=== PATIENT | male | born 1965 | race Caucasian/White ===

== ENCOUNTER 2020-10-18 23:02 | Inpatient (IN) | payer MEDICAID ==
[~2020-10-18] VITALS: Ht 172.7 cm; Wt 72.6 kg
[2020-10-18] MEDS ORDERED: LORAZEPAM 2 MG/1 ML VIAL IM ONE (23:15)
[2020-10-18] MEDS ORDERED: IV NORMAL SALINE 1000 ML BAG IV ONE ×2 (23:15)
[2020-10-18] MEDS ORDERED: ONDANSETRON 4 MG/2 ML VIAL IV ONE (23:15)
[2020-10-18] MEDS ORDERED: HALOPERIDOL LACTATE 5 MG/1 ML VIAL IM ONE (23:15)
--- NOTE | 2020-10-18 23:23 | NUR ---
Pt. bib RA 83 from home cc lower back pain and ams. Pt. only speaks farsi. Blood sugar on the field was 100. According to RA 83 pts. family did not provide any medical hx. On arrival pt. has been yelling for his mother repeatedly. Farsi speaking staff attempted to converse with pt. and report he was unable to answer questions. Pt is able to follow simple commands.
[2020-10-18] MEDS ORDERED: ONDANSETRON 4 MG/2 ML VIAL ONE (23:36)
[2020-10-18] MEDS ORDERED: HALOPERIDOL LACTATE 5 MG/1 ML VIAL ONE (23:36)
[2020-10-18] MEDS ORDERED: LORAZEPAM 2 MG/1 ML VIAL ONE ×2 (23:37→23:51)
--- NOTE | 2020-10-18 23:40 | NUR ---
Pt. yelling, thrashing and attempting to get out of bed. Multiple attempts made to reorient successfully. Security was called to monitor the pt. 1:1. Fall risk precautions in place. notified.
[2020-10-18] MEDS ORDERED: LORAZEPAM 2 MG/1 ML VIAL IV ONE (23:45)
[2020-10-18 23:48] LABS: ETHANOL < 3 MG/DL (0-0)
[2020-10-18 23:49] LABS: CARBON DIOXIDE 19 mmol/L (21-32); CHLORIDE 100 mmol/L (98-107); CREATININE 0.7 mg/dL (0.6-1.3); GLUCOSE 92 mg/dL (74-106); UREA NITROGEN, BLOOD 10 mg/dL (7-18)
[2020-10-18 23:50] LABS: POTASSIUM 2.7 mmol/L (3.5-5.1)
[2020-10-18 23:51] LABS: HEMATOCRIT 41.2 % (36.7-47.1); MEAN CORPUSCULAR HEMOGLOBIN 28.3 uug (23.8-33.4); MEAN CORPUSCULAR VOLUME 87.6 fL (73.0-96.2); PLATELET COUNT (AUTO) 386 K/uL (152-348)
--- NOTE | 2020-10-18 23:55 | NUR ---
Pts. is at bedside. Pts states pt. was admitted to [facility] for a suspected overdose of the pts. home pain medication on 10/12. While hospitalized the pt. developed aspiration pneumonia. Pts. says he became confused during his stay at [facility] [place] she believes due to the infection. Pt. was discharged from [facility] 10/17. Pt. has had continous nausea, vomiting, diarrhea with appetite loss for past 10 days. Pts. is primary still runner for pt. Pt. is not ambulatory due to chronic back pain, pt also had a fall in nov causing lumbar and rib fractures.
[2020-10-19] LABS: MAGNESIUM 1.6 mg/dL (1.8-2.4); PHOSPHOROUS 1.8 mg/dL (2.5-4.9)
[2020-10-19] MEDS ORDERED: POTASSIUM CHLORIDE 20 MEQ TAB.PRT.SR PO ONE
[2020-10-19 00:01] LABS: ALANINE AMINOTRANSFERASE 35 U/L (16-63); ALKALINE PHOSPHATASE 64 U/L (50-136); ASPARTATE AMINOTRANSFERASE 21 U/L (15-37); BILIRUBIN,DIRECT 0.1 mg/dL (0.0-0.2); BILIRUBIN,TOTAL 0.4 mg/dL (0.2-1.0); TOTAL PROTEIN, SERUM 7.3 g/dL (6.4-8.2)
[2020-10-19 00:02] LABS: THYROID STIMULATING HORMONE 4.104 mIU/mL (0.358-3.740)
[2020-10-19] MEDS ORDERED: POTASSIUM CHLORIDE 20 MEQ TAB.PRT.SR ONE (00:03)
[2020-10-19] MEDS ORDERED: POTASSIUM PHOSPHATE MM 15 MMOL in IV NORMAL SALINE 250 ML IV ONE (00:15)
[2020-10-19] MEDS: MAGNESIUM SULFATE/D5W 100 ML IV SCH ×2 (00:15→06:00)
[2020-10-19 00:23] LABS: *BILIRUBIN,URIN NEGATIVE (NEGATIVE); *BLOOD, URINE NEGATIVE (NEGATIVE); *CLARITY,URINE CLEAR (CLEAR); *COLOR,URINE YELLOW (YELLOW); *KETONES,URINE 1+ (NEGATIVE); *UROBILINOGEN,URINE 0.2 E.U./dl (NORMAL); LEUKOCYTE ESTERASE ,URINE NEGATIVE (NEGATIVE); NITRITE, URINE NEGATIVE (NEGATIVE); PH,URINE 7.5 (5.0-8.0); UGLUCOSE NEGATIVE (NEGATIVE)
--- NOTE | 2020-10-19 00:34 | NUR ---
Pt. taken to ct.
[2020-10-19 00:35] LABS: *AMPHETAMINE, URINE NEGATIVE (NEGATIVE); *CANNABINOID, URINE NEGATIVE (NEGATIVE); *COCCAINE, URINE NEGATIVE (NEGATIVE); *OPIATE, URINE POSITIVE (NEGATIVE); *PHENCYCLIDINE SCREEN,URINE NEGATIVE (NEGATIVE)
[2020-10-19 00:44] LABS: BACTERIA,URINE FEW /HPF (NONE SEEN); RBC,URINE 0-3 /HPF (0-3); SQUAMOUS EPITHELIAL CELL,UR FEW /HPF (NONE SEEN); WBC,URINE 0-3 /HPF (0-3)
[2020-10-19 00:45] LABS: URINE AMORPHOUS PHOSPHATES MODERATE /HPF
[2020-10-19] MEDS ORDERED: HYDROMORPHONE 1 MG/1 ML DISP.SYRIN IV ONE (00:45)
[2020-10-19] MEDS ORDERED: HYDROMORPHONE 1 MG/1 ML DISP.SYRIN ONE (00:50)
[2020-10-19] MEDS ORDERED: KETAMINE HCL 500 MG/10 ML INJ IV ONE (01:00)
[2020-10-19] MEDS ORDERED: KETAMINE HCL 500 MG/10 ML INJ ONE (01:08)
--- NOTE | 2020-10-19 01:12 | NUR ---
MANAGER FOOD BEVERAGEclinical staff anesthesiologist member went down to ct scan to assist administered ketamine ivp with ERMD to have ct scan to be completed but patient's refused and patient was able to cooperate with flour inspector to completed ct scan.
[2020-10-19] MEDS ORDERED: TERI2.4P SQ (01:33)
[2020-10-19] MEDS ORDERED: HYDR-3980 PO (01:33)
[2020-10-19] MEDS ORDERED: GABA600T PO (01:33)
[2020-10-19] MEDS ORDERED: FLUO40CA8 PO (01:33)
[2020-10-19] MEDS ORDERED: TRAZ-257 PO (01:33)
[2020-10-19] MEDS ORDERED: [UNRECOGNIZED DRUG - CODE] PO (01:41)
--- NOTE | 2020-10-19 02:00 | NUR ---
Pt. resting comfortably in bed. Pts. at bedside. Pt A&Ox3. Vss. Side rails up, fall precautions in place. Will continue to monitor.
[2020-10-19] MEDS ORDERED: MAGNESIUM SULFATE/D5W 100 ML ONE ×2 (02:32→06:37)
[2020-10-19] MEDS ORDERED: VANCOMYCIN IV 1,250 MG in IV DEXTROSE 5% 250 ML IV ONE (02:45)
[2020-10-19] MEDS ORDERED: DOXYCYCLINE HYCLATE IV 100 MG in IV DEXTROSE 5% 100 ML IV ONE (02:45)
[2020-10-19] MEDS ORDERED: IV NORMAL SALINE 500 ML IV ONE (02:45)
[2020-10-19] MEDS ORDERED: CEFEPIME HCL 2 G in IV DEXTROSE 5% 100 ML IV ONE (02:45)
--- NOTE | 2020-10-19 03:10 | NUR ---
Called for bed
--- NOTE | 2020-10-19 03:10 | NUR ---
Jose C castillo in ED - 10/19/20 at 0724 by ANTONIO Maxepime 2G IV, Vancocin 1,250 mg IV, Vibramycin 100 mg IV, Levaquin 750 mg IV endorsed to ORTEGA Wilson.
--- NOTE | 2020-10-19 03:12 | NUR ---
Dr. Cervantes consulting with Isabel Lowry NP regarding pt. admission.
[2020-10-19] MEDS ORDERED: IV 1/2 NS + KCL 20 MEQ BAG 1,000 ML IV PRN (03:30)
[2020-10-19] MEDS ORDERED: ONDANSETRON 4 MG/2 ML VIAL IV PRN (03:30)
[2020-10-19] MEDS ORDERED: MAGNESIUM HYDROXIDE 30 ML LIQUID UDC PO PRN (03:30)
[2020-10-19] MEDS ORDERED: ACETAMINOPHEN 325 MG TABLET PO PRN (03:30)
[2020-10-19] MEDS ORDERED: Z GUARD REMEDY PASTE 57 GM TUBE TOP PRN (03:30)
--- NOTE | 2020-10-19 03:39 | NUR ---
ER pyxis does not carry the Potassium Phosphate that the MD ordered. Dr. Cervantes was informed, declined to change the order. Dr. Cervantes wants to leave the order standing as is for the floor to complete when pharmacy can obtain the medication tomorrow.
[2020-10-19] MEDS ORDERED: levoFLOXacin 750MG/D5W 750 MG in PREMIXED 1 EACH IV SCH ×2 (04:00→09:00)
--- NOTE | 2020-10-19 04:04 | NUR ---
Report given to ORTEGA Johnson. Addendum: 10/19/20 at 0409 by ANTONIO Report given to ORTEGA Wilson.
--- NOTE | 2020-10-19 04:04 | NUR ---
Maxepime 2G IV, Vancocin 1,250 mg IV, Vibramycin 100 mg IV, Levaquin 750 mg IV endorsed to ORTEGA Wilson.
[2020-10-19 05:30] VITALS: BP 93/69
--- NOTE | 2020-10-19 05:45 | NUR ---
Admitted patient to tele unit from Er via carlos enrique accompanied by Er nurse .Dx of acute encephalopathy.Patient awake alert x2. Confused , no episodes of yelling at this time.Farsi speaking with 02 at 1LPM via [place].No s/s of distress noted.Iv on right UA 20 g .Skin assessment done , noted with multiple skin issues. Photos taken and placed in the chart.IV medications wasn't infuse from ER since from 0100 in the morning.Notified Er nurse/Susana stated she 'll come to administer some of IV medications.Call light with in reach.Safety measures in place. 1:1 sitter at bedside . Will endorse to oncoming shift.
[2020-10-19] MEDS ORDERED: CEFEPIME HCL 1 G VIAL ONE (06:33)
[2020-10-19] MEDS ORDERED: DOXYCYCLINE HYCLATE 100 MG INJ IV ONE (06:35)
[2020-10-19] MEDS ORDERED: VANCOMYCIN HCL 500 MG VIAL ONE (06:35)
[2020-10-19] MEDS ORDERED: levoFLOXacin 750MG/D5W 150 ML IV ONE (06:36)
[2020-10-19 11:29] VITALS: BP 119/80
[2020-10-19] MEDS ORDERED: SODIUM PHOSPHATE MM 15 MMOL in IV NORMAL SALINE 250 ML IV ONE (12:00)
[2020-10-19] MEDS ORDERED: METRONIDAZOLE 500 MG/NS 100ML 500 MG in PREMIXED 1 EACH IV SCH ×2 (12:00→14:00)
[2020-10-19] MEDS: HYDROCODONE/APAP 5-325MG TABLET PO PRN ×2 (12:18→18:44)
[2020-10-19] MEDS ORDERED: POTASSIUM CHLORIDE 10 MEQ TAB.PRT.SR PO ONE (12:30)
[2020-10-19] MEDS ORDERED: POTASSIUM CHLORIDE 50 ML IV SCH (13:30)
[2020-10-19] MEDS ORDERED: POTASSIUM CHLORIDE 10 MEQ, LIDOCAINE-MPF 1% 1 ML in IV DEXTROSE 5% 100 ML IV SCH (14:00)
--- NOTE | 2020-10-19 14:04 | NUR ---
0245 meds were ER meds. Meds were not administered by this health science writer. Pharmacy informed.
[2020-10-19] MEDS ORDERED: ALBUTEROL SULFATE 2.5 MG/3 ML NEBU NEB PRN (16:45)
--- NOTE | 2020-10-19 19:00 | NUR ---
patient received with at bedside. pharmacy called that the patient needs a lab draw for the k level as there is order of k in the pharmacy that cannot be given until the k level is rechecked, patient requesting for going home against medical advice, charge nurse is informed amd talked to the patient and the . explained the needs for him to stay for further care but decided to go against medical advice. AMA form ed signed by the patient with the , iv cannula discontinued and cafeteria monitor discontinued .dressing to the iv cannula site applied.
--- NOTE | 2020-10-19 19:15 | NUR ---
Patient resting in bed. AOx2, Farsi speaking. On 2L O2 via NC. Patient not in acute distress. Patient complained of lower back pain, pain medication PRN given, patient tolerated well. Patient with 1:1 sitter, would have episodes of attempting to remove IV access. Will endorse to incoming shift for continuity of care.
[2020-10-19 20:00] VITALS: BP 121/74
--- NOTE | 2020-10-19 20:18 | NUR ---
lab in to collect the k level but patient and refused. change and kept clean and discharge via wheelchair in stable condition against medical advice with patient , patient noted to have skin tears to the bilateral arms and pictures were taken, Addendum: 10/19/20 at 2102 by PERSONAL SECURITY SPECIALIST RN abnormal labs discuss with patient and , with the charge nurse, risk and benefits explained and still patient decides to go home against medical advice, notified the SUPPLY CHAIN DIRECTOR Shiela Acosta on duty informed by the charge nurse . nursing roofing supervisor is made aware,
== END 2020-10-19 20:15 | disposition left against medical advice (07) | DRG 812 ==
LOC: ER 23:06 → TELE3 10-19 04:48
PROVIDERS: ADMIT Registered Nurse; ATTEND Registered Nurse
DX: T40.601A Poisoning by unspecified narcotics, accidental (unintentional), initial encounter (principal); J96.01 Acute respiratory failure with hypoxia; R65.20 Severe sepsis without septic shock; J69.0 Pneumonitis due to inhalation of food and vomit; A41.9 Sepsis, unspecified organism; G93.41 Metabolic encephalopathy; E87.2 Acidosis; E83.39 Other disorders of phosphorus metabolism; M84.48XA Pathological fracture, other site, initial encounter for fracture; E83.42 Hypomagnesemia; E87.6 Hypokalemia; G89.4 Chronic pain syndrome; Z20.822 Contact with and (suspected) exposure to COVID-19; Z87.01 Personal history of pneumonia (recurrent); Z87.891 Personal history of nicotine dependence; Z86.73 Personal history of transient ischemic attack (TIA), and cerebral infarction without residual deficits; Z79.891 Long term (current) use of opiate analgesic; M47.9 Spondylosis, unspecified; R19.7 Diarrhea, unspecified; M19.90 Unspecified osteoarthritis, unspecified site; M48.061 Spinal stenosis, lumbar region without neurogenic claudication; N20.0 Calculus of kidney; Z91.81 History of falling; Y92.009 Unspecified place in unspecified non-institutional (private) residence as the place of occurrence of the external cause
CPT/HCPCS: 36415; 70030-TC; 70450; 71045; 72131; 73020; 83605; 83615; 83690; 83735; 84100; 84443; 85025; 85730; 86140; 87040; 87046; 93005; A4663; G0378; G0480; J0692; J1170; J1630; J1956; J2060; J2405; J3370; J3475; J3480; J3490; J7030; J7040; J7050; J7060

== ENCOUNTER 2024-09-12 21:23 | Emergency (ER) | payer MEDICAID ==
[~2024-09-12] VITALS: Ht 165.1 cm; Wt 63.5 kg
[~2024-09-12 21:23] MED LIST: FLUO40CA8 PO; GABA600T PO; HYDR-3980 PO; TERI2.4P SQ; TRAZ-257 PO; [UNRECOGNIZED DRUG - CODE] PO
[2024-09-12] MEDS: IV NORMAL SALINE 1000 ML BAG IV ONE (21:40)
[2024-09-12] MEDS: METOCLOPRAMIDE HCL 10 MG/2 ML VIAL IV ONE (21:40)
[2024-09-12] MEDS: KETOROLAC TROMETHAMINE 30 MG INJ IVP ONE (21:41)
[2024-09-12 21:43] LABS: *BLOOD, URINE 2+ (NEGATIVE); *CLARITY,URINE SLIGHTLY CLOUDY (CLEAR); *COLOR,URINE DARK YELLOW (YELLOW); *KETONES,URINE 1+ (NEGATIVE); *PROTEIN,URINE 2+ (NEGATIVE); LEUKOCYTE ESTERASE ,URINE NEGATIVE (NEGATIVE); NITRITE, URINE NEGATIVE (NEGATIVE); UGLUCOSE NEGATIVE (NEGATIVE)
[2024-09-12 21:44] LABS: BASOPHILS # (AUTO) 0.1 K/UL (0.0-0.2); BASOPHILS % (AUTO) 0.5 % (0.0-2.0); EOSINOPHILS # (AUTO) 0.1 K/uL (0.0-0.7); HEMATOCRIT 46.8 % (36.7-47.1); HEMOGLOBIN 15.6 g/dL (12.5-16.3); LYMPHOCYTES # (AUTO) 3.7 K/uL (0.8-4.8); LYMPHOCYTES % (AUTO) 26.7 % (20.5-51.5); MEAN CORPUSCULAR HEMOGLOBIN 30.4 uug (23.8-33.4); MEAN CORPUSCULAR HGB CONC 33 g/dL (32.5-36.3); MONOCYTES # (AUTO) 0.8 K/uL (0.1-1.30); NEUTROPHILS # (AUTO) 9.1 K/uL (1.8-8.9); NEUTROPHILS % (AUTO) 65.8 % (38.5-71.5); PLATELET COUNT (AUTO) 217 K/uL (152-348); RED BLOOD CELL COUNT(AUTO) 5.14 MIL/uL (4.06-5.63); RED CELL DISTRIBUTION WIDTH 14.1 % (12.1-16.2); WHITE BLOOD COUNT (AUTO) 13.8 K/uL (3.6-10.2)
[2024-09-12 21:45] LABS: DIFFERENTIAL COMMENT 1
[2024-09-12 21:45] LABS: *BILIRUBIN,URIN 1+ (NEGATIVE)
[2024-09-12 21:46] LABS: WBC,URINE 0-3 /HPF (0-3)
[2024-09-12 21:55] LABS: ALBUMIN 4.2 g/dL (3.4-5.0); BILIRUBIN,DIRECT 0.1 mg/dL (0.0-0.2); BILIRUBIN,TOTAL 0.6 mg/dL (0.2-1.0); CALCIUM 9.2 mg/dL (8.5-10.1); CREATININE 1.1 mg/dL (0.6-1.3); POTASSIUM 4.8 mmol/L (3.5-5.1); TOTAL PROTEIN, SERUM 7.3 g/dL (6.4-8.2)
[2024-09-12] MEDS ORDERED: MORPHINE SULFATE 4 MG/1 ML DISP.SYRIN ONE (21:57)
[2024-09-12] MEDS ORDERED: MORPHINE SULFATE 2 MG/1 ML DISP.SYRIN ONE (21:57)
[2024-09-12] MEDS: MORPHINE SULFATE 4 MG/1 ML DISP.SYRIN IV ONE (22:03)
[2024-09-12] MEDS: CIPROFLOXACIN HCL 250 MG TABLET PO ONE (23:10)
[2024-09-12] MEDS ORDERED: HYDR-3980 PO (23:12)
[2024-09-12] MEDS ORDERED: CIPR-262 PO (23:12)
[2024-09-12 23:19] VITALS: BP 97/44; O2SAT 95
== END 2024-09-12 23:19 | disposition home or self-care (01) ==
LOC: ER 21:23
DX: R31.29 Other microscopic hematuria (principal); N39.0 Urinary tract infection, site not specified; M81.0 Age-related osteoporosis without current pathological fracture; Z79.899 Other long term (current) drug therapy; Z87.01 Personal history of pneumonia (recurrent); Z87.442 Personal history of urinary calculi; Z96.651 Presence of right artificial knee joint; Z91.09 Other allergy status, other than to drugs and biological substances
CPT/HCPCS: 99285; 74176; 96374; 96375; 96361; 80076; 80048; 81001; 85025; 36415; J1885; J2765; J2270 ×2; J7040; A4606; A4663

== ENCOUNTER 2025-01-25 16:09 | Emergency (ER) | payer MEDICAID ==
[~2025-01-25] VITALS: Ht 165.1 cm; Wt 63.5 kg
[~2025-01-25 16:09] MED LIST changes: +CIPR-262 PO
[2025-01-25] MEDS ORDERED: HYDROMORPHONE 1 MG/1 ML DISP.SYRIN ONE ×2 (17:28→18:33)
[2025-01-25] MEDS ORDERED: ONDANSETRON 4 MG/2 ML VIAL ONE ×2 (17:28→18:33)
[2025-01-25 17:32] LABS: PLATELET COUNT (AUTO) 197 K/uL (152-348); RED BLOOD CELL COUNT(AUTO) 4.41 MIL/uL (4.06-5.63); RED CELL DISTRIBUTION WIDTH 14.4 % (12.1-16.2); WHITE BLOOD COUNT (AUTO) 6.9 K/uL (3.6-10.2)
[2025-01-25] MEDS: ONDANSETRON 4 MG/2 ML VIAL IV ONE ×2 (17:38→18:36)
[2025-01-25] MEDS: IV NORMAL SALINE 1000 ML BAG IV ONE (17:38)
[2025-01-25] MEDS: HYDROMORPHONE 1 MG/1 ML DISP.SYRIN IV ONE ×2 (17:38→18:36)
[2025-01-25 17:45] LABS: ASPARTATE AMINOTRANSFERASE 19 U/L (15-37); CREATININE 0.7 mg/dL (0.6-1.3); SODIUM SERUM 141 mmol/L (136-145); TOTAL PROTEIN, SERUM 6.4 g/dL (6.4-8.2); UREA NITROGEN, BLOOD 16 mg/dL (7-18)
[2025-01-25 18:07] VITALS: BP 94/57
[2025-01-25] MEDS ORDERED: SUCR1ORA4 PO (18:43)
[2025-01-25] MEDS ORDERED: FAMO40TA7 PO (18:43)
[2025-01-25 18:52] VITALS: BP 101/62; O2SAT 98
[2025-01-25 19:52] LABS: *BILIRUBIN,URIN NEGATIVE (NEGATIVE); *BLOOD, URINE NEGATIVE (NEGATIVE); *CLARITY,URINE CLEAR (CLEAR); *COLOR,URINE YELLOW (YELLOW); *KETONES,URINE NEGATIVE (NEGATIVE); *PROTEIN,URINE NEGATIVE (NEGATIVE); *UROBILINOGEN,URINE 0.2 E.U./dl (NORMAL); LEUKOCYTE ESTERASE ,URINE NEGATIVE (NEGATIVE); NITRITE, URINE NEGATIVE (NEGATIVE); UGLUCOSE NEGATIVE (NEGATIVE)
== END 2025-01-25 18:54 | disposition home or self-care (01) ==
LOC: ER 16:17
DX: R10.31 Right lower quadrant pain (principal); R10.32 Left lower quadrant pain; M54.50 Low back pain, unspecified; G89.29 Other chronic pain; Z79.899 Other long term (current) drug therapy; Z87.01 Personal history of pneumonia (recurrent); Z90.49 Acquired absence of other specified parts of digestive tract; Z91.048 Other nonmedicinal substance allergy status; Z96.651 Presence of right artificial knee joint
CPT/HCPCS: 99285; 96374; 71045; 96361; 96375; 80076; 80048; 81003; 83690; 85025; 85651; 85730; 84484; 36415; 74021; 93005; 96376; J2405 ×2; J1171 ×2; J7040; A4606; A4663

== ENCOUNTER 2025-02-02 16:03 | Emergency (ER) | payer MEDICAID ==
[~2025-02-02] VITALS: Ht 167.6 cm; Wt 63.5 kg
[~2025-02-02 16:03] MED LIST changes: +FAMO40TA7 PO; +SUCR1ORA4 PO
[2025-02-02] MEDS ORDERED: diphenhydrAMINE 50 MG/1 ML VIAL ONE (17:55)
[2025-02-02] MEDS ORDERED: HYDROMORPHONE 2 MG/1 ML DISP.SYRIN ONE (17:56)
[2025-02-02] MEDS: HYDROMORPHONE 1 MG/1 ML DISP.SYRIN IM ONE (18:03)
[2025-02-02] MEDS: diphenhydrAMINE 50 MG/1 ML VIAL IM ONE (18:03)
[2025-02-02 18:13] LABS: PLATELET COUNT (AUTO) 199 K/uL (152-348); RED BLOOD CELL COUNT(AUTO) 4.66 MIL/uL (4.06-5.63); RED CELL DISTRIBUTION WIDTH 14.7 % (12.1-16.2); WHITE BLOOD COUNT (AUTO) 8.9 K/uL (3.6-10.2)
[2025-02-02 18:21] LABS: CREATININE 0.8 mg/dL (0.6-1.3); SODIUM SERUM 142 mmol/L (136-145); UREA NITROGEN, BLOOD 15 mg/dL (7-18)
[2025-02-02 18:27] LABS: ASPARTATE AMINOTRANSFERASE 101 U/L (15-37); TOTAL PROTEIN, SERUM 6.6 g/dL (6.4-8.2)
[2025-02-02 18:40] VITALS: BP 120/78
[2025-02-02] MEDS ORDERED: ONDANSETRON 4 MG/2 ML VIAL ONE (19:09)
[2025-02-02 21:59] VITALS: BP 128/80; O2SAT 99
== END 2025-02-02 20:37 | disposition left against medical advice (07) ==
LOC: ER 16:09
DX: M54.50 Low back pain, unspecified (principal); G89.29 Other chronic pain; Z79.899 Other long term (current) drug therapy; Z87.01 Personal history of pneumonia (recurrent); Z87.442 Personal history of urinary calculi; Z91.048 Other nonmedicinal substance allergy status; Z96.651 Presence of right artificial knee joint; Z98.1 Arthrodesis status
CPT/HCPCS: 99284; 80076; 80048; 83690; 85025; 84484; 36415; 96372 ×2; J1200; J2405; J1171; A4606; A4663